=== PATIENT | male | born 1950 | race Caucasian/White ===

== ENCOUNTER 2021-02-19 11:19 | Emergency (ER) | payer MEDICARE, OTHER ==
--- NOTE | 2021-02-19 11:25 | PCM.EKG ---
#1 Interpretation EKG Date: 02/19/21 Time: 11:16 Rhythm: NSR Rate (Beats/Min): 99 [place]: Normal P-Wave: Present QRS: Normal ST-T: Normal QT: Normal [place]/PQ Interval: 156 EKG Interpretation Comments: normal EKG
[2021-02-19] MEDS ORDERED: Sodium Chloride 0.9% 2.5 ML Syringe FLUSH PRN (11:34)
[2021-02-19] MEDS ORDERED: Sodium Chloride 0.9% 10 ML Syringe FLUSH PRN (11:34)
[2021-02-19] MEDS ORDERED: LORazepam 2 MG/ML SDV IVPUSH ONE (11:42)
[2021-02-19 12:02] LABS: BLOOD UREA NITROGEN,BUN 19 mg/dL (7.0-18.0); CARBON DIOXIDE,CO2 26.3 mmol/L (21.0-32.0); CHLORIDE,CL 100 mmol/L (98-107); GLUCOSE RANDOM 112 mg/dL (74-106); LIPASE 72 U/L (73-393); POTASSIUM,K 4.1 mmol/L (3.5-5.1); SODIUM,NA 137 mmol/L (136-148)
[2021-02-19] MEDS ORDERED: Gadobenate Dimeglumine 529 MG/ML 20 ML SDV IVPUSH STA (12:22)
--- NOTE | 2021-02-19 12:37 | CR ---
For Patients: As a result of the Century Cures Act, medical imaging exams and procedure reports are released immediately into your electronic medical record. You may view this report before your referring provider. If you have questions, please contact your health care provider. Indication: Symmetric lower extremity weakness Comparison: None available. Technique: Single AP view chest Findings: There is hyperinflation and chronic interstitial change. There is minimal basilar atelectasis versus scar. There is no pneumothorax or pleural effusion. There is demonstration of a right paratracheal mass with mild leftward effacement of the trachea. This may represent an enlarged, substernal thyroid. The bony thorax is grossly intact. Impression: Hyperinflation and chronic interstitial changes without dense consolidation. Demonstration of a right paratracheal mass which can be seen in the setting of a substernal thyroid. Follow-up with contrast enhanced CT of the chest for improved characterization. Dictated by Jacobo Guardado MD @ 02/19/2021 12:35:[address] Jacobo Guardado @ Feb 19 2021 12:35PM
--- NOTE | 2021-02-19 13:27 | CT ---
For Patients: As a result of the Century Cures Act, medical imaging exams and procedure reports are released immediately into your electronic medical record. You may view this report before your referring provider. If you have questions, please contact your health care provider. Indication: Sudden asymmetric Mackey weakness Technique: Noncontrast head Comparison: No comparison Findings: Axial noncontrast images brain brain parenchyma demonstrates no acute intracranial hemorrhage or mass. No midline shift. No abnormal extra-axial air fluid collections. Paranasal sinuses mastoid air cells skull and scalp appear unremarkable. Impression: No acute intracranial hemorrhage or mass. Please note that all CT scans at this facility use dose modulation, iterative reconstruction, and/or weight-based dosing when appropriate to reduce radiation dose to as low as reasonably achievable. Dictated by Nancie Dai MD @ 02/19/2021 1:25:[address] Nancie Dai @ Feb 19 2021 1:25PM
--- NOTE | 2021-02-19 13:46 | MR ---
For Patients: As a result of the Century Cures Act, medical imaging exams and procedure reports are released immediately into your electronic medical record. You may view this report before your referring provider. If you have questions, please contact your health care provider. Indication: Bilateral lower extremity weakness, sudden instability and inability to walk Technique: Multiplanar, multisequence MR images of the lumbar spine were obtained with and without the administration of IV contrast. 20 cc MultiHance intravenous gadolinium Comparison: None available. Findings: The lumbar vertebral body heights are grossly maintained with minimal endplate Schmorl`s defect of the inferior L3, superior L4 inferior L4 levels. There is minimal anterolisthesis of L4 on L5 with otherwise straightening of the normal lumbar lordosis. There is mild multilevel degenerative disc disease with disc desiccation height loss and disc protrusions at multiple levels worst at the L4-L5 level with a diffuse disc bulge and moderate to severe facet arthrosis. There is moderate to severe spinal canal narrowing and effacement of the lateral recesses with moderate severe right and [id number] left neural foraminal narrowing. The vertebral bodies have grossly preserved marrow signal intensity. The conus medullaris terminates at the T12-L1 level and is normal in signal and contour. The paraspinous soft tissues are grossly unremarkable. There is no abnormal contrast enhancement. Impression: Mild multilevel degenerative changes worst at the L4-L5 level with moderate to severe focal spinal canal narrowing. Otherwise no evidence of significant effacement of the nerve roots. No evidence of abnormal contrast enhancement. Dictated by Jacobo Guardado MD @ 02/19/2021 1:45:[address] Jacobo Guardado @ Feb 19 2021 1:45PM
[2021-02-19] MEDS ORDERED: Aspirin 81 MG Tab.Chew PO ONE (14:38)
--- NOTE | 2021-02-19 15:01 | EDM.PDOC ---
ED HPI GENERAL MEDICAL PROBLEM - General Chief Complaint: Neurological Problem Stated Complaint: WEAKNESS Time Seen by Provider: 02/19/21 11:34 Source of Information: Reports: Patient History Limitations: Reports: No Limitations - History of Present Illness INITIAL COMMENTS - FREE TEXT/NARRATIVE: HISTORY AND PHYSICAL: History of present illness: Patient is a 71-year-old male who presents emergency room today with concern of bilateral extremity weakness that began just prior to arrival to the emergency room. Patient states that over the course of the past year, he has had some nonspecific weakness of his lower legs and states that it feels as if is in the thigh area and has if they just are not as strong as usual. Patient states that he has mentioned this to his primary care provider before who told him to strengthen his legs. Patient states that he used to be able to walk several miles with his but states that they have had to decrease this over the course of the past year. Patient states that today he was up normally and walking around without any difficulties and is a lawn and garden technician. 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 Patient states that he went to stand to bring paperwork to the production administrative assistant and states that his legs "immediately gave out "on him and he has had a difficult time walking due to leg weakness. Patient denies any other associated symptoms and states other than this, he feels per his usual self and has no other complaints. Patient states he has a history of hypertension and hyperlipidemia and states that he is a moderate alcohol user but does not use daily and is not dependent on it and just drinks heavily socially. Patient denies fever, chills, chest pain, shortness of breath, or cough. Denies headache, neck stiff ness, change in vision, syncope, or near syncope. Denies nausea, vomiting, abdominal pain, diarrhea, constipation, or dysuria. Has not noted any blood in urine or stool. Patient has been eating and drinking appropriately. Patient denies loss or retention of bowel bladder function or saddle anesthesia. Review of systems: As per history of present illness and below otherwise all systems reviewed and negative. Past medical history: As per history of present illness and as reviewed below otherwise noncontributory. Surgical history: As per history of present illness and as reviewed below otherwise noncontributory. Social history: See social history for further information Family history: As per history of present illness and as reviewed below otherwise noncontributory. Physical exam: General: Patient is alert, oriented, and in no acute distress. Patient sitting comfortably on exam table. Hypertensive 180/90s, otherwise vitally stable and reviewed by me. HEENT: Atraumatic, normocephalic, pupils equal and reactive bilaterally, negative for conjunctival pallor or scleral icterus, mucous membranes moist, TMs normal bilaterally, throat clear, neck supple, nontender, trachea midline. No drooling or trismus noted. No meningeal signs. No hot potato voice noted. Lungs: Clear to auscultation, breath sounds equal bilaterally, chest nontender. Heart: S1S2, regular rate and rhythm without overt murmur Abdomen: Soft, nondistended, nontender. Negative for masses or hepatosplenomegaly. Negative for costovertebral tenderness. Pelvis: Stable nontender. Genitourinary: Deferred. Rectal: Patient offered rectal exam but declines. Skin: Intact, warm, dry. No lesions or rashes noted. Extremities: Atraumatic, negative for cords or calf pain. Neurovascular unremarkable. Neuro: Awake, alert, oriented. Cranial nerves II through XII unremarkable. When patient stands up, his legs begin to shake. He is able to take small steps but appears unsteady gate he notes "like my legs will give out". No obvious deformity of bilateral lower extremity. Patient has 5/5 muscle strength of all extremities. SLR intact bilaterally. Patellar reflexes 1+ bilaterally. Full ROM of all extremities without deficit. Intact sensation to light and deep touch of all extremities. No drift of UE/LE. No foot drop. NIH 0. Notes: Dr. Mcpherson verbally involved in patient care. Patient is a 71-year-old male who presents emergency room today with concern of acute exacerbation of lower extremity symmetric leg weakness that started just prior to arrival to the emergency room but has been slowly progressing over 1 year. Upon arrival to the ED, patient is noted to be hypertensive 180s over 90s but otherwise vitally stable. On exam, patient is able to stand but noted that his legs are "shaky "and he appears as if he has to think hard about taking steps and is unsteady on his feet and only able to take small unsteady steps. He describes the sensation as feeling like his "legs are going to give out ". Will perform head CT. I did call down to MRI, who only has time right now to perform a lumbar MRI and not the remaining spine or brain. We will also perform cardiac evaluation. See Dr. Mcpherson's dictation for specific EKG interpretation. However, normal sinus rhythm without signs of ischemic changes. CBC mild derangements unremarkable. CMP mild derangements unremarkable. ESR is noted to be mildly elevated at 36. CRP is found to be mildly elevated at 6.4. TSH within normal limits. Lipase within normal limits. Trop negative. MRI of the lumbar spine with and without contrast shows mild multilevel degenerative changes worse at the L4-L5 level with moderate to severe focal spinal canal narrowing. Otherwise, no evidence of significant effacement of the nerve roots. No evidence for abnormal contrast-enhancement. Chest x-ray shows hyperinflation and chronic interstitial changes without dense consolidation. Demonstration of a right paratracheal mass which can be seen in the setting of substernal thyroid. Head CT shows no acute intracranial hemorrhage or mass. Upon reevaluation of patient, blood pressure has improved to 120s over 80s without intervention and patient has clinical improvement of his gait. He is able to walk without unsteadiness but states that he does feel some residual weakness of his thighs. I did call and speak to the neurologist on-call for [facility], Dr. Liu, and thoroughly discussed patient's case. He would like patient to be transferred to [place] in order to receive an MRI of the brain and remainder of the spine, as I am unable to obtain this at our facility today, recommends transfer. He recommends giving patient a dose of aspirin today in the emergency room and concerned about possible stroke although symptoms have been slow over 1 year, the acute change today recommends transfer to obtain these imaging or concern for upper spinal compression. Discussed this with patient and my conversation with Dr. Liu. Jose requests to leave the ED against medical advice as he states he has improvement of his symptoms and has been ongoing for 1 year and does not have concern for this being a stroke. Discussed with patient the possibility of recontacting the MRI staff at our facility to see if we are able to obtain an MRI of head and remainder spine at the end of the day. However, he does not want to obtain these images and requests to leave the ED AMA without anymore diagnostic completion. All risks vs benefits discussed with patient including but not limited to permanent limb paralysis, progressing permanent weakness, permanent inability to ambulate, or even and expresses understanding. All incidental findings of imaging today discussed with patient and the importance for follow-up with his primary care provider and expresses understanding. Patient does follow with Dr. Erickson at [facility]. Amena Hodge RN did call [facility] and established an appointment time for patient tomorrow AM at 830. Diagnostics: EKG, Trop, CBC, CMP, UA, ESR, CRP, TSH, Trop, Head CT, Lumbar MRI, CXR Therapeutics: ASA Prescription: None Impression: Bilateral lower extremity weakness Against medical advice Plan: Left against medical advice Definitive disposition and diagnosis as appropriate pending reevaluation and review of above. - Related Data Allergies Allergy/AdvReac Type Severity Reaction Status Date / Time No Known Allergies Allergy Verified 02/19/21 11:27 Home Meds: Home Meds . [Unable to Verify Home Med List] 02/19/21 [History] ED ROS GENERAL - Review of Systems Review Of Systems: Comprehensive ROS is negative, except as noted in HPI. ED EXAM, GENERAL - Physical Exam Exam: See Below (See dictation) Course - Vital Signs Last Recorded V/S: Last Vital Signs Temp 97.8 F 02/19/21 11:27 Pulse 100 02/19/21 11:27 Resp 18 02/19/21 11:27 BP 181/88 H 02/19/21 11:27 Pulse Ox 98 02/19/21 11:27 - Orders/Labs/Meds Orders: Active Orders 24 hr Category Date Time Status EKG Documentation Completion [RC] STAT Care 02/19/21 11:34 Active UA RFX LIAM AND CULT IF INDIC [URIN] Stat Lab 02/19/21 11:34 Ordered Sodium Chloride 0.9% [Saline Flush] Med 02/19/21 11:34 Active 10 ml FLUSH ASDIRECTED PRN Sodium Chloride 0.9% [Saline Flush] Med 02/19/21 11:34 Active 2.5 ml FLUSH ASDIRECTED PRN Saline Lock Insert [OM.PC] Stat Oth 02/19/21 11:34 Ordered Medication Orders Sodium Chloride (Sodium Chloride 0.9% 10 Ml Syringe) 10 ml FLUSH ASDIRECTED PRN PRN Reason: Keep Vein Open Last Admin: 02/19/21 12:06 Dose: 10 ml Documented by: PETER Sodium Chloride (Sodium Chloride 0.9% 2.5 Ml Syringe) 2.5 ml FLUSH ASDIRECTED PRN PRN Reason: Keep Vein Open Last Admin: 02/19/21 12:06 Dose: 2.5 ml Documented by: PETER Labs: Laboratory Tests 02/19/21 02/19/21 02/19/21 Range/Units 11:23 11:23 11:23 WBC 8.98 (4.0-11.0) K/uL RBC 5.16 (4.50-5.90) M/uL Hgb 14.8 (13.0-17.0) g/dL Hct 43.9 (38.0-50.0) % MCV 85.1 (80.0-98.0) fL MCH 28.7 (27.0-32.0) pg MCHC 33.7 (31.0-37.0) g/dL RDW Std Deviation 43.3 (28.0-62.0) fl RDW Coeff of Mushtaq 14 (11.0-15.0) % Plt Count 212 (150-400) K/uL MPV 11.20 (7.40-12.00) fL Neut % (Auto) 53.6 (48.0-80.0) % Lymph % (Auto) 30.8 (16.0-40.0) % Keith % (Auto) 12.1 (0.0-15.0) % Eos % (Auto) 2.9 (0.0-7.0) % Baso % (Auto) 0.6 (0.0-1.5) % Neut # (Auto) 4.8 (1.4-5.7) K/uL Lymph # (Auto) 2.8 H (0.6-2.4) K/uL Keith # (Auto) 1.1 H (0.0-0.8) K/uL Eos # (Auto) 0.3 (0.0-0.7) K/uL Baso # (Auto) 0.1 (0.0-0.1) K/uL Nucleated RBC % 0.0 /100WBC Nucleated RBCs # 0 K/uL ESR (0-19) mm/hr Sodium 137 (136-148) mmol/L Potassium 4.1 (3.5-5.1) mmol/L Chloride 100 (98-107) mmol/L Carbon Dioxide 26.3 (21.0-32.0) mmol/L BUN 19 H (7.0-18.0) mg/dL Creatinine 1.0 (0.8-1.3) mg/dL Est Cr Clr Drug Dosing 81.06 mL/min Estimated GFR (MDRD) > 60.0 ml/min Glucose 112 H (74-106) mg/dL Calcium 9.7 (8.5-10.1) mg/dL Total Bilirubin 0.9 (0.2-1.0) mg/dL AST 22 (15-37) IU/L ALT 25 (14-63) IU/L Alkaline Phosphatase 67 (46-116) U/L Creatine Kinase 219 (26-308) U/L Troponin I < 0.050 (0.000-0.056) ng/mL C-Reactive Protein 6.40 H (0.00-0.90) mg/dL Total Protein 8.0 (6.4-8.2) g/dL Albumin 3.6 (3.4-5.0) g/dL Globulin 4.4 H (2.6-4.0) g/dL Albumin/Globulin Ratio 0.8 L (0.9-1.6) Lipase 72 L (73-393) U/L TSH 3rd Generation 1.00 (0.36-3.74) uIU/mL 02/19/21 Range/Units 11:23 WBC (4.0-11.0) K/uL RBC (4.50-5.90) M/uL Hgb (13.0-17.0) g/dL Hct (38.0-50.0) % MCV (80.0-98.0) fL MCH (27.0-32.0) pg MCHC (31.0-37.0) g/dL RDW Std Deviation (28.0-62.0) fl RDW Coeff of Mushtaq (11.0-15.0) % Plt Count (150-400) K/uL MPV (7.40-12.00) fL Neut % (Auto) (48.0-80.0) % Lymph % (Auto) (16.0-40.0) % Keith % (Auto) (0.0-15.0) % Eos % (Auto) (0.0-7.0) % Baso % (Auto) (0.0-1.5) % Neut # (Auto) (1.4-5.7) K/uL Lymph # (Auto) (0.6-2.4) K/uL Keith # (Auto) (0.0-0.8) K/uL Eos # (Auto) (0.0-0.7) K/uL Baso # (Auto) (0.0-0.1) K/uL Nucleated RBC % /100WBC Nucleated RBCs # K/uL ESR 36 H (0-19) mm/hr Sodium (136-148) mmol/L Potassium (3.5-5.1) mmol/L Chloride (98-107) mmol/L Carbon Dioxide (21.0-32.0) mmol/L BUN (7.0-18.0) mg/dL Creatinine (0.8-1.3) mg/dL Est Cr Clr Drug Dosing mL/min Estimated GFR (MDRD) ml/min Glucose (74-106) mg/dL Calcium (8.5-10.1) mg/dL Total Bilirubin (0.2-1.0) mg/dL AST (15-37) IU/L ALT (14-63) IU/L Alkaline Phosphatase (46-116) U/L Creatine Kinase (26-308) U/L Troponin I (0.000-0.056) ng/mL C-Reactive Protein (0.00-0.90) mg/dL Total Protein (6.4-8.2) g/dL Albumin (3.4-5.0) g/dL Globulin (2.6-4.0) g/dL Albumin/Globulin Ratio (0.9-1.6) Lipase (73-393) U/L TSH 3rd Generation (0.36-3.74) uIU/mL Meds: Medications Generic Name Dose Route Start Last Admin Trade Name Freq PRN Reason Stop Dose Admin Sodium Chloride 10 ml 02/19/21 11:34 02/19/21 12:06 Sodium Chloride 0.9% 10 Ml Syringe FLUSH 10 ml ASDIRECTED PRN Administration Keep Vein Open Sodium Chloride 2.5 ml 02/19/21 11:34 02/19/21 12:06 Sodium Chloride 0.9% 2.5 Ml Syringe FLUSH 2.5 ml ASDIRECTED PRN Administration Keep Vein Open Discontinued Medications Generic Name Dose Route Start Last Admin Trade Name Krystle PRN Reason Stop Dose Admin Aspirin 324 mg 02/19/21 14:38 02/19/21 14:56 Aspirin 81 Mg Tab.Chew PO 02/19/21 14:39 243 mg ONETIME ONE Administration Gadobenate Dimeglumine 20 ml 02/19/21 12:22 02/19/21 12:23 Gadobenate Dimeglumine 529 Mg/Ml 20 Ml Sdv IVPUSH 02/19/21 12:23 20 ml ONETIME STA Administration Lorazepam 1 mg 02/19/21 11:42 02/19/21 12:06 Lorazepam 2 Mg/Ml Sdv IVPUSH 02/19/21 11:43 1 mg ONETIME ONE Administration Departure - Departure Time of Disposition: 15:01 Disposition: Against Medical Advice 07 Clinical Impression: Bilateral leg weakness, Left against medical advice - Discharge Information Referrals: Christo Erickson MD [Primary Care Provider] - Forms: ED Department Discharge Additional Instructions: The following information is given to patients seen in the emergency department who are being discharged to home. This information is to outline your options for follow-up care. We provide all patients seen in our emergency department with a follow-up referral. The need for follow-up, as well as the timing and circumstances, are variable depending upon the specifics of your emergency department visit. If you don't have a primary care physician on staff, we will provide you with a referral. We always advise you to contact your personal physician following an emergency department visit to inform them of the circumstance of the visit and for follow-up with them and/or the need for any referrals to a consulting specialist. The emergency department will also refer you to a specialist when appropriate. This referral assures that you have the opportunity for follow-up care with a specialist. All of these measure are taken in an effort to provide you with optimal care, which includes your follow-up. Under all circumstances we always encourage you to contact your private physician who remains a resource for coordinating your care. When calling for follow-up care, please make the office aware that this follow-up is from your recent emergency room visit. If for any reason you are refused follow-up, please contact the [facility] Emergency Department at and asked to speak to the emergency department charge nurse. [facility] [address] [place] [address] [facility] [address] [place] [id number] [facility] - Neu[facility] Professional Building [address] [facility], [address] [place] [address] Sepsis Event Note (ED) - Evaluation Sepsis Screening Result: No Definite Risk - Focused Exam Vital Signs: Vital Signs Temp Pulse Resp BP Pulse Ox 02/19/21 11:27 97.8 F 100 18 181/88 H 98 - My Orders Last 24 Hours: My Active Orders 02/19/21 11:34 EKG Documentation Completion [RC] STAT UA RFX LIAM AND CULT IF INDIC [URIN] Stat Sodium Chloride 0.9% [Saline Flush] 10 ml FLUSH ASDIRECTED PRN Sodium Chloride 0.9% [Saline Flush] 2.5 ml FLUSH ASDIRECTED PRN Saline Lock Insert [OM.PC] Stat - Assessment/Plan Last 24 Hours: My Active Orders 02/19/21 11:34 EKG Documentation Completion [RC] STAT UA RFX LIAM AND CULT IF INDIC [URIN] Stat Sodium Chloride 0.9% [Saline Flush] 10 ml FLUSH ASDIRECTED PRN Sodium Chloride 0.9% [Saline Flush] 2.5 ml FLUSH ASDIRECTED PRN Saline Lock Insert [OM.PC] Stat
== END 2021-02-19 15:00 | disposition left against medical advice (07) ==
LOC: MW.ED 11:19
DX: M62.81 Muscle weakness (generalized) (principal)
CPT/HCPCS: 36415; 70450; 71045; 72158; 80053; 82550; 83690; 84443; 84484; 85025; 85652; 86140; 93005; 96374; 96375; 99285; A9270; A9577; J2060

== ENCOUNTER 2023-04-14 16:46 | Emergency (ER) | payer MEDICARE, OTHER ==
[2023-04-14] MEDS ORDERED: Sodium Chloride 0.9% 10 ML Syringe FLUSH PRN (17:34)
[2023-04-14] MEDS ORDERED: Sodium Chloride 0.9% 2.5 ML Syringe FLUSH PRN (17:34)
[2023-04-14] MEDS ORDERED: Sodium Chloride 0.9% 1,000 ML IV STA (17:35)
[2023-04-14 18:01] LABS: HEMATOCRIT 26.1 % (38.0-50.0); HEMOGLOBIN 8.5 g/dL (13.0-17.0); MEAN CORPUSCULAR HEMOGLOBIN 27.8 pg (27.0-32.0); MEAN CORPUSCULAR HGB CONC 32.6 g/dL (31.0-37.0); MEAN CORPUSCULAR VOLUME 85.3 fL (80.0-98.0); NRBC ABSOLUTE 0 K/uL; PLATELET COUNT,PLT 426 K/uL (150-400); RED BLOOD CELL COUNT 3.06 M/uL (4.50-5.90); WHITE BLOOD CELL COUNT,WBC 4.06 K/uL (4.0-11.0)
[2023-04-14 18:27] LABS: BASOPHILS PERCENT AUTO 1.5 % (0.0-1.5); EOSINOPHILS PERCENT AUTO 2.2 % (0.0-7.0); LYMPHOCYTES ABSOLUTE AUTO 0.7 K/uL (0.6-2.4); LYMPHOCYTES PERCENT AUTO 17.5 % (16.0-40.0); MONOCYTES ABSOLUTE AUTO 0.1 K/uL (0.0-0.8); MONOCYTES PERCENT AUTO 1.7 % (0.0-15.0); NEUTROPHILS ABSOLUTE AUTO 3.1 K/uL (1.4-5.7); NEUTROPHILS PERCENT AUTO 77.1 % (48.0-80.0)
[2023-04-14 18:28] LABS: BASOPHILS ABSOLUTE AUTO 0.1 K/uL (0.0-0.1); EOSINOPHILS ABSOLUTE AUTO 0.1 K/uL (0.0-0.7)
[2023-04-14 18:36] LABS: ALANINE AMINOTRANSFERASE,ALT 80 IU/L (14-63); ALBUMIN 2.6 g/dL (3.4-5.0); ALKALINE PHOSPHATASE 55 U/L (46-116); ASPARTATE AMNIOTRANSFERASE,AST 69 IU/L (15-37); BILIRUBIN TOTAL 0.4 mg/dL (0.2-1.0); BLOOD UREA NITROGEN,BUN 44 mg/dL (7.0-18.0); CALCIUM 13.9 mg/dL (8.5-10.1); CARBON DIOXIDE,CO2 29.1 mmol/L (21.0-32.0); CHLORIDE,CL 102 mmol/L (98-107); CREATININE 2.9 mg/dL (0.8-1.3); GLUCOSE RANDOM 104 mg/dL (74-106); LIPASE 89 U/L (73-393); MAGNESIUM 1.8 mg/dL (1.8-2.4); PHOSPHORUS 4.4 mg/dL (2.6-4.7); POTASSIUM,K 3.7 mmol/L (3.5-5.1); PROTEIN TOTAL,TP 6.6 g/dL (6.4-8.2); SODIUM,NA 140 mmol/L (136-148); TSH ULTRASENSITIVE 0.66 uIU/mL (0.36-3.74)
[2023-04-14 18:51] LABS: A/G RATIO 0.7 (0.9-1.6); ESTIMATED GFR 22 mL/min (>60)
== END 2023-04-14 20:44 | disposition left against medical advice (07) ==
LOC: MW.ED 16:46
DX: E83.52 Hypercalcemia (principal); N17.9 Acute kidney failure, unspecified; D64.9 Anemia, unspecified; R74.01 Elevation of levels of liver transaminase levels; R19.5 Other fecal abnormalities; I10 Essential (primary) hypertension; F17.210 Nicotine dependence, cigarettes, uncomplicated; R63.4 Abnormal weight loss; J39.8 Other specified diseases of upper respiratory tract
CPT/HCPCS: 36415; 80053; 82397; 83690; 83735; 83970; 84100; 84443; 85025; 96360; 96361; 99283; J3490; J7030; 93005; 93010; 99284

== ENCOUNTER 2023-04-21 13:24 | Observation (INO) | payer MEDICARE, OTHER ==
[2023-04-21 13:45] LABS: BASOPHILS ABSOLUTE AUTO 0.1 K/uL (0.0-0.1); BASOPHILS PERCENT AUTO 1.5 % (0.0-1.5); EOSINOPHILS ABSOLUTE AUTO 0.3 K/uL (0.0-0.7); HEMATOCRIT 25.4 % (38.0-50.0); HEMOGLOBIN 8.3 g/dL (13.0-17.0); LYMPHOCYTES PERCENT AUTO 23.8 % (16.0-40.0); MEAN CORPUSCULAR HEMOGLOBIN 27.3 pg (27.0-32.0); MEAN CORPUSCULAR HGB CONC 32.7 g/dL (31.0-37.0); MEAN CORPUSCULAR VOLUME 83.6 fL (80.0-98.0); MONOCYTES ABSOLUTE AUTO 1.3 K/uL (0.0-0.8); MONOCYTES PERCENT AUTO 15.7 % (0.0-15.0); NEUTROPHILS ABSOLUTE AUTO 4.6 K/uL (1.4-5.7); NRBC ABSOLUTE 0 K/uL; PLATELET COUNT,PLT 315 K/uL (150-400); RED BLOOD CELL COUNT 3.04 M/uL (4.50-5.90); WHITE BLOOD CELL COUNT,WBC 8.22 K/uL (4.0-11.0)
[2023-04-21 13:53] LABS: BASE EXCESS VENOUS -0.4 (-2.0-3.0); PH,VENOUS 7.51 (7.31-7.41)
[2023-04-21 14:20] LABS: A/G RATIO 0.7 (0.9-1.6); ALBUMIN 2.4 g/dL (3.4-5.0); BILIRUBIN TOTAL 0.3 mg/dL (0.2-1.0); CALCIUM 9.3 mg/dL (8.5-10.1); CARBON DIOXIDE,CO2 21.6 mmol/L (21.0-32.0); CREATININE 1.9 mg/dL (0.8-1.3); EST CRCL DRUG DOSING (CG) 41.46 mL/min; MAGNESIUM 1.6 mg/dL (1.8-2.4); POTASSIUM,K 3.2 mmol/L (3.5-5.1); PROTEIN TOTAL,TP 5.9 g/dL (6.4-8.2)
[2023-04-21] MEDS ORDERED: Potassium Chloride 20 MEQ Tab.ER PO ONE (14:37)
[2023-04-21] MEDS ORDERED: Magnesium Oxide 400 MG Tab PO ONE (14:38)
[2023-04-21] MEDS ORDERED: Iopamidol 755 Mg/ML 100 ML Bottle IVPUSH ONE (15:26)
[2023-04-21] MEDS ORDERED: Dexamethasone 4 MG Tab PO ONE (16:49)
[2023-04-21] MEDS ORDERED: REMDESIVIR 200 MG in Sodium Chloride 0.9% 250 ML IV ONE (16:49)
[2023-04-21] MEDS ORDERED: Benzonatate 100 MG Cap PO PRN (23:37)
[2023-04-21] MEDS ORDERED: Enoxaparin 40 MG/0.4 ML Syringe SUBCUT SCH (23:45)
[2023-04-22 06:01] LABS: HEMATOCRIT 24.5 % (38.0-50.0); HEMOGLOBIN 7.9 g/dL (13.0-17.0); MEAN CORPUSCULAR HEMOGLOBIN 27.3 pg (27.0-32.0); MEAN CORPUSCULAR HGB CONC 32.2 g/dL (31.0-37.0); MEAN CORPUSCULAR VOLUME 84.8 fL (80.0-98.0); NRBC ABSOLUTE 0 K/uL; PLATELET COUNT,PLT 271 K/uL (150-400); RED BLOOD CELL COUNT 2.89 M/uL (4.50-5.90); WHITE BLOOD CELL COUNT,WBC 5.12 K/uL (4.0-11.0)
[2023-04-22 06:23] LABS: A/G RATIO 0.6 (0.9-1.6); ALBUMIN 2.2 g/dL (3.4-5.0); BILIRUBIN TOTAL 0.3 mg/dL (0.2-1.0); CARBON DIOXIDE,CO2 26.1 mmol/L (21.0-32.0); CREATININE 1.6 mg/dL (0.8-1.3); EST CRCL DRUG DOSING (CG) 49.23 mL/min; PHOSPHORUS 3.9 mg/dL (2.6-4.7); POTASSIUM,K 4.5 mmol/L (3.5-5.1); PROTEIN TOTAL,TP 5.7 g/dL (6.4-8.2)
[2023-04-22 06:27] LABS: BAND ABSOLUTE MAN 0.3; BAND PERCENT MAN 5 %; LYMPHOCYTES PERCENT MAN 19 % (16.0-40.0); MONOCYTES ABSOLUTE MAN 0.5 (0.0-0.8); MONOCYTES PERCENT MAN 9 % (0.0-15.0); SEG NEUTROPHILS ABSOLUTE MAN 3.4 (1.4-5.7); SEG NEUTROPHILS PERCENT MAN 67 % (48.0-80.0)
[2023-04-22] MEDS ORDERED: Dexamethasone 4 MG Tab PO SCH (09:00)
[2023-04-22] MEDS ORDERED: REMDESIVIR 100 MG in Sodium Chloride 0.9% 100 ML IV ONE (10:45)
[2023-04-22] MEDS ORDERED: REMDESIVIR 100 MG in Sodium Chloride 0.9% 100 ML IV SCH (16:00)
== END 2023-04-22 13:10 | disposition home or self-care (01) ==
LOC: MW.ED 13:24 → MW.MS 17:01
PROVIDERS: ADMIT Internal Medicine; ATTEND Internal Medicine
DX: U07.1 COVID-19 (principal); J12.82 Pneumonia due to coronavirus disease 2019; E78.00 Pure hypercholesterolemia, unspecified; I10 Essential (primary) hypertension; Z79.82 Long term (current) use of aspirin; Z79.899 Other long term (current) drug therapy; Z79.52 Long term (current) use of systemic steroids; Z87.891 Personal history of nicotine dependence
CPT/HCPCS: 36415; 71045; 71275; 80053; 82803; 83735; 83880; 84100; 84484; 85025; 85379; 87040; 93005; 96374; 99285; A9270; J0248; J1650; J3490; J7050; J8540; Q9967; U0002; 93010; 99284

== ENCOUNTER 2023-05-06 12:14 | Emergency (ER) | payer MEDICARE, OTHER ==
[2023-05-06] MEDS ORDERED: Sodium Chloride 0.9% 2.5 ML Syringe FLUSH PRN (12:36)
[2023-05-06] MEDS ORDERED: Sodium Chloride 0.9% 10 ML Syringe FLUSH PRN (12:36)
== END 2023-05-06 14:15 | disposition left against medical advice (07) ==
LOC: MW.ED 12:14
DX: R55 Syncope and collapse (principal); E78.00 Pure hypercholesterolemia, unspecified; I10 Essential (primary) hypertension; Z79.82 Long term (current) use of aspirin; Z79.899 Other long term (current) drug therapy
CPT/HCPCS: 93005; 99283; 99284